=== PATIENT | male | born 1950 | race Caucasian/White ===

== ENCOUNTER 2022-08-18 13:09 | Outpatient (CLI) | payer MEDICARE, OTHER, SELFPAY ==
[2022-08-18 22:18] LABS: Basophils Absolute Auto 0.03 K/uL (0.00-0.30); Basophils Percent Auto 0.4 % (0.0-3.0); Eosinophils Absolute Auto 0.15 K/uL (0.00-0.50); Hematocrit 48.7 % (37.0-53.0); Hemoglobin* 15.6 gm/dL (13.5-17.5); Immature Granulocytes Abs Auto 0.02 K/uL (0.00-0.30); Immature Granulocytes Pct Auto 0.3 %; Lymphocytes Absolute Auto 1.97 K/uL (0.90-2.90); Mean Corpuscular HGB Conc 32 gm/dL (32-36); Mean Corpuscular Hemoglobin 28 pg (26-34); Mean Corpuscular Volume 88 fL (80-100); Monocytes Percent Auto 9.7 % (0.0-11.0); Neutrophils Absolute Auto 4.68 K/uL (1.7-7.0); Neutrophils Percent Auto 61.6 % (42.0-72.0); Platelet Count* 266 K/uL (140-440); Red Blood Count 5.54 m/uL (4.30-5.90); White Blood Count* 7.59 K/uL (4.50-11.00)
[2022-08-18 22:27] LABS: Chloride* 103 mmol/L (96-114); Potassium* 4.9 mmol/L (3.6-5.1); Sodium* 141 mmol/L (135-149)
[2022-08-18 22:30] LABS: Blood Urea Nitrogen* 13 mg/dL (7-30); Carbon Dioxide* 31 mmol/L (20-32); Cholesterol* 186 mg/dL (90-199); Creatinine* 0.8 mg/dL (0.5-1.5); Estimated Glomerular Filt Rate 93 ml/min
[2022-08-18 22:31] LABS: Calcium* 9.5 mg/dL (8.4-10.6); Glucose* 89 mg/dL (60-115); HDL Cholesterol* 63 mg/dL (>=40); LDL Cholesterol Calculated 107 mg/dL (<100); Triglycerides* 78 mg/dL (40-149)
[2022-08-18 23:03] LABS: Slide Review Reflex No
[2022-08-18 23:14] LABS: Vitamin B12* 612 pg/mL (243-894)
[2022-08-18 23:18] LABS: Ferritin* 13.9 ng/mL (17.9-464.0)
[2022-08-19 05:56] LABS: PSA Diagnostic* 6.06 ng/mL (0.10-4.00)
[2022-08-20 19:40] LABS: Folate, Serum 19.2 ng/mL (>=5.9)
== END 2022-08-18 13:10 | disposition home or self-care (01) ==
PROVIDERS: PCP Family Medicine; Visit Provider Family Medicine
DX: D64.9 Anemia, unspecified (principal); R97.20 Elevated prostate specific antigen [PSA]; Z13.6 Encounter for screening for cardiovascular disorders
CPT/HCPCS: 80048; 80061; 82607; 82728; 82746; 84153; 85025

== ENCOUNTER 2022-08-26 15:47 | Outpatient (CLI) | payer MEDICARE, OTHER, SELFPAY | END 2022-08-26 15:48 | disposition home or self-care (01) | LOC: NFLDREF 15:48 | PROVIDERS: PCP Family Medicine; Visit Provider Internal Medicine | DX: R31.9 Hematuria, unspecified (principal) | CPT/HCPCS: 87086 ==

== ENCOUNTER 2024-01-18 14:35 | Outpatient (CLI) | payer MEDICARE, OTHER, SELFPAY ==
--- OUTSIDE RECORDS SUMMARY | 2024-01-22 19:15 | XMS_ITS | Clinical Summary ---
Author Organization [employer] [facility] Address [place], [place] [address] Care Team Providers Care Depositing Machine Operator Name Role Phone David Constantino MD Primary Care Provider + Allergies No known active allergies Medications Medication Sig Dispensed Refills Start Date End Date Status ibuprofen (ADVIL; MOTRIN) 600 mg tabletIndications: Contusion of left shoulder, subsequent encounter,Contusio n of left hand including fingers, subsequent encounter Take 1 tablet by mouth every 6 hours if needed for Pain. Maximum of 3200 mg in 24 hours. 60 tablet 1 01/12/2017 Active oxyCODONE-acetamin ophen, 5-325 mg, (PERCOCET) 5-325 mg per tabletIndications: Acute pain of left shoulder Take 1 tablet by mouth every 4 hours if needed for Pain Max acetaminophen dose: 4000mg in 24 hrs. 8 tablet 10/08/2017 Active Active Problems Problem Noted Date Diagnosed Date COPD (chronic obstructive pulmonary disease) 11/2014 Elevated PSA 09/06/2014 Constipation 04/30/2009 Primary Spontaneous Pneumothorax 04/23/2009 Overview: Presented on 04/19, 80% pneumo on right side, chest tube placed, and removed after 24 hrs and discharged. Readmitted with shortness of breath, xray suggestive of 50% pneumo on the same side. 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 Likely related to smoking, but unclear. TIA (transient ischemic attack) 08/03/1988 Overview: Sensory only T7-T12 fx-closed/cord injury Overview: Traumatic, T12, needs to self catheterise since. Resolved Problems Problem Noted Date Diagnosed Date Resolved Date Thoracoscopic surgical proce glenne converted to open procedure 05/04/2009 09/06/2014 Tobacco use disorder 04/23/2009 015 Overview: History of tobacco use disorder, 40 pack year history, quit a year ago. Has no history of cough, shortness of breath, wheezing. Not on inhalers. Has not been admitted for shortness of breath, COPD exacerbation. CVA (cerebral vascular accident) 02/01/2004 09/06/2014 Overview: Sensory only, in 1988, left sided symptoms, recovered within a few days. CT head at the time normal. Was prescribed likely aggrenox, has not been taking it. No aspirin, statin. MRI not performed due to vertebral hardware. Immunizations Name Administration Dates Next Due Influenza, IIV4 05/03/2015 Pneumococcal Poly,23-Valent (Pneumovax) 04/24/20 09 Tdap 02/15/2008 Zoster (Zostavax-ZVL, live) 09/27/2015 Family History Medical History Relation Name Comments Unknown Father Unknown Mother Relation Name Status Comments Father Mother Social History Tobacco Use Types Packs/Day Years Used Date Smoking Tobacco: Former Cigarettes 1 40 1 - 05/03/2008 Smokeless Tobacco: Never Tobacco Cessation:Counseling Given: Yes Comments:Quit a year ago. Alcohol Use Standard Drinks/Week Comments No 0 (1 standard drink = 0.6 oz pur e alcohol) Sex and Gender Information Value Date Recorded Sex Assigned at Not on file Gender Identity Not on file Sexual Orientation Not on file Obstetrics History Last Filed Vital Signs Vital Sign Reading Time Taken Comments Blood Pressure 120/80 10/08/2017 11:28 AM CHAINER Pulse 86 10/08/2017 11:28 AM CHAINER Temperature 36.2 ??C (97.2 ??F) 05/04/2009 7:00 AM CD T Respiratory Rate 16 01/26/2017 1:05 PM CDT Oxygen Saturation 96% 10/08/2017 11:28 AM CHAINER Inhaled Oxygen Concentration - - Weight 79 kg (174 lb 1.6 oz) 10/08/2017 11:28 AM CHAINER Height 179 cm (5' 10.47) 10/08/2017 11:28 AM CS T Body Mass Index 24.65 10/08/2017 11:28 AM CHAINER Plan of Treatment Health Maintenance Due Date Last Done Comments Hepatitis C screening for ag e 18-79 1967 Pneumococcal series for age 65+ (2 of 2 - PCV) 2014 04/24/2009 Zoster (shingles) series for age 50+ (2 of 3) 11/22/2015 09/27/2015 Depression screening for age 12+ 01/26/2018 01/27/20 17, 10/11/2015 Tetanus booster 02/14/2018 02/15/2008 BMI (ht and wt on same day) for age 18+ 10/08/2018 10/08/2017, 02/25/2017, 01/26/2017, Additional history exists Lipids for age 45-75 08/31/2019 08/31/2014 Colonoscopy through age 75 12/08/2019 12/07/2014, COVID-19 vaccine series ( season) 2023 05/03/2022, 05/29/2021, 09/28/2020, Additional history exists Influenza for age 65+ 04/03/2024 05/03/2015 (Completed outside of [facility]), 05/03/2015 Tdap Completed 02/15/2008 Medical Devices Implanted Type Area Insurance And Benefits Clerk Device Identifier Shelf Expiration Date Model / Serial / Lot Strips Alia Us-45 - [id number] Implanted:Qty: 6 on 04/27/[address] [facility] Right: Lung [employer] 07/22/2009 [id number] # / / [id number] [id number] Alia Us-62 - [id number] Implanted:Qty: 2 on 04/27/[address] [facility] Right: Lung [employer] 07/22/2009 [id number] # / / [id number] Seamguluca Hearnaii 60g 4.8mm - [id number] Implanted:Qty: 4 on 04/27/[address] [facility] Right: Lung [employer] 03/03/2011 [id number]# / / [id number] Procedures Procedure Name Priority Date/Time Associated Diagnosis Comments COLONOSCOPY SCREENING Routine 12/07/2014 Special screening for malignant neoplasms, colon LIPID PANEL W REFLEX MEASURED LDL Routine 08/31/2014 9:39 AM CHAINER Routine general medical examination at a health care facility from Last 3 Months or Most Recently Relevant to Health Maintenance Results * COLONOSCOPY SCREENING (12/07/2014) David Constantino MD GI PROCEDURE ORD * LIPID PANEL W REFLEX MEASURED LDL (08/31/2014 9:39 AM CHAINER) CHOLESTEROL,TOTAL 189 100 - 199 mg/dL 08/31/2014 10:26 AM CHAINER [facility] TRIGLYCERIDES 60 <150 mg/dL 08/31/2014 10:26 AM CHAINER [facility] HDL CHOLESTEROL 63 >40 mg/dL 5 10:26 AM CHAINER [facility] NON-HDL CHOLESTEROL 126 <145 mg/dl 08/31/2014 10:26 AM CHAINER [facility] CHOL/HDL RATIO 3.00 <4.50 08/31/2014 10:26 AM [facility] LDL CHOLESTEROL 114 <=130 mg/dL 08/31/2014 10:26 AM [facility] PATIENT STATUS NOT GIVEN 08/31/2014 10:26 AM [facility] Blood specimen (specimen) BLOOD SPECIMEN / Unknown Venipuncture / Unknown 08/31/2014 9:39 AM CHAINER 08/31/2014 9:39 AM CHAINER David Constantino MD CHEMISTRY [address] [address], from Last 3 Months or Most Recently Relevant to Health Maintenance Advance Directives * Full Code (Latest Code Status on File) Date Activated Date Inactivated Comments 04/23/2009 5:46 PM 05/04/2009 3:57 PM Care Teams Depositing Machine Operator Relationship Specialty Start Date End Date David Constantino MD [address] [place] [address] PCP - General 07/06/06
== END 2024-01-18 14:36 | disposition home or self-care (01) ==
LOC: NFLDREF 01-22 19:14
PROVIDERS: PCP Family Medicine; Referring Provider Family Medicine; Visit Provider Registered Nurse
DX: R31.9 Hematuria, unspecified (principal)
CPT/HCPCS: 87086; 87186

== ENCOUNTER 2024-03-28 13:04 | Outpatient (CLI) | payer MEDICARE, OTHER, SELFPAY ==
--- OUTSIDE RECORDS SUMMARY | 2024-03-28 13:18 | XMS_ITS | Clinical Summary ---
Author Organization [employer] [facility] Address [place], [place] [address] Care Team Providers Care Automatic Vulcanizing Lead Operator Name Role Phone David Constantino MD [...] Comments Blood Pressure 120/80 10/08/2017 11:28 AM OTOLARYNGOLOGY REP Pulse 86 10/08/2017 11:28 AM OTOLARYNGOLOGY REP Temperature 36.2 ??C (97.2 ??F) 05/04/2009 7:00 AM CD T Respiratory Rate 16 01/26/2017 1:05 PM CDT Oxygen Saturation 96% 10/08/2017 11:28 AM OTOLARYNGOLOGY REP Inhaled Oxygen Concentration - - Weight 79 kg (174 lb 1.6 oz) 10/08/2017 11:28 AM OTOLARYNGOLOGY REP Height 179 cm (5' 10.47) 10/08/2017 11:28 AM CS T Body Mass Index 24.65 10/08/2017 11:28 AM OTOLARYNGOLOGY REP Plan of Treatment Health Maintenance Due Date [...] age 65+ 04/03/2024 05/03/2015 (Completed outside of [facility]), 05/03/2015 Tdap Completed 02/15/2008 Medical Devices Implanted Type Area Roller Inspector Device Identifier Shelf Expiration Date Model / Serial / Lot Strips Alia Us-45 - [id number] Implanted:Qty: 6 on 04/27/[address] [facility] Right: Lung [employer] 07/22/2009 [id number] # / / [id number] Strips Alia Us-62 - [id number] Implanted:Qty: 2 on 04/27/[address] [facility] Right: Lung [employer] 07/22/2009 [id number] # / / [id number] Seamguluca Hearnaii 60g 4.8mm - [id number] Implanted:Qty: 4 on 04/27/[address] [facility] Right: Lung [employer] 03/03/2011 [id number]# / / [id number] Procedures Procedure Name Priority Date/Time Associated Diagnosis Comments COLONOSCOPY SCREENING Routine 12/07/2014 Special screening for malignant neoplasms, colon LIPID PANEL W REFLEX MEASURED LDL Routine 08/31/2014 9:39 AM OTOLARYNGOLOGY REP Routine general medical examination at a health care facility from Last 3 Months or Most Recently Relevant to Health Maintenance Results * COLONOSCOPY SCREENING (12/07/2014) David Constantino MD GI PROCEDURE ORD * LIPID PANEL W REFLEX MEASURED LDL (08/31/2014 9:39 AM OTOLARYNGOLOGY REP) CHOLESTEROL,TOTAL 189 100 - 199 mg/dL 08/31/2014 10:26 AM OTOLARYNGOLOGY REP [facility] TRIGLYCERIDES 60 <150 mg/dL 08/31/2014 10:26 AM OTOLARYNGOLOGY REP [facility] HDL CHOLESTEROL 63 >40 mg/dL 5 10:26 AM OTOLARYNGOLOGY REP [facility] NON-HDL CHOLESTEROL 126 <145 mg/dl 08/31/2014 10:26 AM OTOLARYNGOLOGY REP [facility] CHOL/HDL RATIO 3.00 <4.50 08/31/2014 10:26 AM [facility] LDL CHOLESTEROL 114 <=130 mg/dL 08/31/2014 10:26 AM [facility] PATIENT STATUS NOT GIVEN 08/31/2014 10:26 AM [facility] Blood specimen (specimen) BLOOD SPECIMEN / Unknown Venipuncture / Unknown 08/31/2014 9:39 AM OTOLARYNGOLOGY REP 08/31/2014 9:39 AM OTOLARYNGOLOGY REP David Constantino MD CHEMISTRY [address] [address], from Last 3 Months or Most Recently Relevant to Health Maintenance Advance Directives * Full Code (Latest Code Status on File) Date Activated Date Inactivated Comments 04/23/2009 5:46 PM 05/04/2009 3:57 PM Care Teams Automatic Vulcanizing Lead Operator Relationship Specialty Start Date End Date David Constantino MD [address] [place] [address] PCP - General 07/06/06
== END 2024-03-28 13:05 | disposition home or self-care (01) ==
PROVIDERS: PCP Family Medicine; Visit Provider Family Medicine
DX: D64.9 Anemia, unspecified (principal); R97.20 Elevated prostate specific antigen [PSA]; Z13.9 Encounter for screening, unspecified
CPT/HCPCS: 80048; 80061; 82728; 84153; 85025; G0103

== ENCOUNTER 2024-08-18 19:59 | Emergency (ER) | payer MEDICARE, OTHER, SELFPAY ==
[2024-08-18 20:34] VITALS: BP 162/91; PULSE 83; RESP 16; TEMP 36.6; O2SAT 97; BMI 23.7
--- NOTE | 2024-08-18 20:38 | CRLHL7_ITS ---
For Patients: As a result of the Cures Act, medical imaging exams and procedure reports are released immediately into your electronic medical record. You may view this report before your referring provider. If you have questions, please contact your health care provider. INDICATION: Injury and pain. TECHNIQUE: Right wrist 3 views. COMPARISON: 03/28/2024. FINDINGS: No acute fracture or dislocation. Old triquetral fracture. Wrist and partially visualized 1st MCP joint degenerative changes, similar to prior. Mild soft tissue swelling. IMPRESSION: No acute osseous abnormality. Dictated by Asif Lopez MD @ 08/18/2024 9:10:34 PM (Electronically Signed)
--- NOTE | 2024-08-18 21:32 | ED_ITS ---
HPI - General Adult General Date Seen: 08/18/24 Chief complaint: Extremity Pain/Injury, Upper Stated complaint: R wrist deformed-fall out of truck Time Seen by Provider: 08/18/24 21:28 History of Present Illness HPI narrative: 74-year-old gentleman presenting to the ER today with right wrist (and mild left shoulder) pain. He slipped and fell out of his truck about 2 hours prior to arrival. He is having wrist pain and swelling. He struck his hand on the back of his wrist when he fell. He now has pain with evolving swelling and ecchymosis on the dorsum of the wrist. He has pain on the dorsum is hand but mostly in the wrist, mostly in the center, over the capitate area. He is having limited flexion extension the wrist to the pain and limited ability to make a fist in his hand because it hurts his wrist. No associated numbness or weakness. No discoloration in his fingers. He does Although he did hit his shoulder, it is not painful and he would not have come to the ER for that injury. He did not hit his head. No neck pain. No numbness or tingling in his arms or legs. No other injury from falling. Related Data Home Medications ?Medication ?Instructions ?Recorded ?Confirmed catheter 14 Fr (Bull Catheter) 06/30/22 03/28/24 ferrous sulfate 325 mg (65 mg 325 mg PO QDAY 08/18/22 08/18/24 iron) tablet omeprazole magnesium 20 mg 20 mg PO QDAY 01/18/24 08/18/24 tablet,delayed release (Prilosec OTC) Previous Rx's ?Medication ?Instructions ?Recorded fluticasone 250 mcg-salmeterol 50 1 inh inhalation BID #180 ea 04/13/24 mcg/dose blistr powdr for inhalation (Advair Diskus) Allergies Allergy/AdvReac Type Severity Reaction Status Date / Time No Known Drug Allergies Allergy Verified 03/28/24 12:40 [facility] Medical History (Updated 08/18/24 @ 21:48 by Joce Stock MD) History of TIA (transient ischemic attack) (~2002) ?Z86.73 - Personal history of transient ischemic attack (TIA), and cerebral infarction without residual deficits (ICD-10) Osteoarthritis, multiple sites ?M15.9 - Polyosteoarthritis, unspecified (ICD-10) Hearing loss ?H91.90 - Unspecified hearing loss, unspecified ear (ICD-10) T12 burst fracture (1988) ?S22.081A - Stable burst fracture of T11-T12 vertebra, initial encounter for closed fracture (ICD-10) Chronic constipation ?K59.09 - Other constipation (ICD-10) Neurogenic bladder ?N31.9 - Neuromuscular dysfunction of bladder, unspecified (ICD-10) History of poliomyelitis ?Z86.12 - Personal history of poliomyelitis (ICD-10) COPD (chronic obstructive pulmonary disease) ?J44.9 - Chronic obstructive pulmonary disease, unspecified (ICD-10) RASCON (dyspnea on exertion) ?R06.09 - Other forms of dyspnea (ICD-10) Anemia ?D64.9 - Anemia, unspecified (ICD-10) Elevated PSA ?R97.20 - Elevated prostate specific antigen [PSA] (ICD-10) Surgical History (Updated 03/24/24 @ 10:08 by Karen Davenport) History of thoracotomy (2008) ?Z98.890 - Other specified postprocedural states (ICD-10) History of vasectomy (1990) ?Z98.52 - Vasectomy status (ICD-10) History of spinal surgery ?Z98.890 - Other specified postprocedural states (ICD-10) History of right inguinal hernia repair (2004) ?Z98.890 - Other specified postprocedural states (ICD-10) ?Z87.19 - Personal history of other diseases of the digestive system (ICD-10) History of repair of left rotator cuff (03/03/17) ?Z98.890 - Other specified postprocedural states (ICD-10) History of total left hip arthroplasty (02/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) ?Z96.642 - Presence of left artificial hip joint (ICD-10) S/P small bowel resection (07/02/20) ?Z90.49 - Acquired absence of other specified parts of digestive tract (ICD- 10) Social History (Updated 03/28/24 @ 14:29 by Shasta Chaudhari) What is your current living situation?: I presently have a place to live Problems where you live: pests, such as bugs, ants, or mice In the past 12 months, utilities in danger of being shut off: no In past 12 months, lack of transportation kept you from medical appts, meetings, work, or getting things needed for daily living: no In the past 12 mos, have been you worried that your food would run out before you had money to buy more?: never true In the past 12 mos, the food you bought just didn't last and you didn't have money to buy more?: never true Smoking Status: Former smoker How often does anyone, including family, friends and others, physically hurt you : never How often does anyone, including family, friends and others, insult or talk down to you: never How often does anyone, including family, friends and others, threaten you with harm: never How often does anyone, including family, friends and others, scream or curse at you: never Health Related Social Needs: Inadequate housing (Z59.1) Exam Narrative: Exam Narrative: Constitutional: Appears well-developed and well-nourished. Alert. Conversant. Non toxic. Very polite. HENT: Head: Atraumatic. Nose: Nose normal. Mouth/Throat: Oral mucosa is clear and moist. no trismus. Eyes: Conjunctivae normal. EOM normal. Pupils equal, round, and reactive to light. No scleral icterus. Neck: Normal range of motion. Neck supple. No tracheal deviation present. Cardiovascular: Normal rate, regular rhythm. No gallop. No friction rub. No murmur heard. Symmetric radial artery pulses Pulmonary/Chest: Effort normal. No stridor. No respiratory distress. No wheezes. No rales. No rhonchi . No tenderness. Musculoskeletal: RUE: Clavicle, shoulder, humerus, biceps, triceps nontender. Elbow nontender. Normal flexion extension of the elbow. Forearm nontender. He does have some discomfort in pronation and supination by pain but he is able to fully supinate/pronate. There is the swelling over the dorsal central wrist with small amount of allowing ecchymosis and tenderness there. No bony crepitus. Although chief complaint indicates that he had deformity brisk, he does not have deformity, he has swelling on the dorsal wrist. He is not tender over the anatomic snuffbox. No tenderness over the ulnar styloid. Range of motion list limited by pain. He is not having tenderness over the metacarpal bones in his digits 1, 2, 3, 4, 5. MCP joints are nontender. Fingers and thumb nontender. Intact radial, median, ulnar nerve sensory function. Normal distal cap refill. Normal radial pulse LUE: Normal range of motion. No tenderness. No deformity RLE: Normal range of motion. No edema. No tenderness. No deformity LLE: Normal range of motion. No edema. No tenderness. No deformity Lymph: No cervical adenopathy. Neurological: Alert and oriented to person, place, and time. Normal strength. CN II-VII intact. No sensory deficit. GCS eye subscore is 4. GCS verbal subscore is 5. GCS motor subscore is 6. Normal coordination Skin: Skin is warm and dry. No rash noted. No pallor. Normal capillary refill. Psychiatric: Normal mood. Normal affect. Const: Vital Signs, click to edit/add: Vital Signs - 24 hr 08/18/24 20:34 Temperature 98 F Pulse Rate [Pulse Oximeter] 83 Respiratory Rate 16 Blood Pressure [Ri ght Upper Arm] 162/91 H Pulse Oximetry 97 Oxygen Delivery Me thod Room Air Course Vital Signs Vital signs: Initial Vital Signs Temperature 98 F 08/18/24 20:34 Temperature Source Temporal Artery Scan 08/18/24 20:34 Pulse Rate 83 08/18/24 20:34 Respiratory Rate 16 08/18/24 20:34 Blood Pressure 162/91 H 08/18/24 20:34 Blood Pressure Mean 114 H 08/18/24 20:34 Blood Pressure Position Sitting 08/18/24 20:34 Pulse Oximetry 97 08/18/24 20:34 Oxygen Delivery Method Room Air 08/18/24 20:34 Vital Signs Temperature 98 F 08/18/24 20:34 Pulse Rate 83 08/18/24 20:34 Respiratory Rate 16 08/18/24 20:34 Blood Pressure 162/91 H 08/18/24 20:34 Pulse Oximetry 97 08/18/24 20:34 Oxygen Delivery Method Room Air 08/18/24 20:34 Temperature 98 F 08/18/24 20:34 Pulse Rate 83 08/18/24 20:34 Respiratory Rate 16 08/18/24 20:34 Blood Pressure 162/91 H 08/18/24 20:34 Pulse Oximetry 97 08/18/24 20:34 Oxygen Delivery Method Room Air 08/18/24 20:34 Medications Administered Medications: Discontinued Medications Generic Name Dose Route Start Last Admin Trade Name Evelyn PRN Reason Stop Dose Admin Oxycodone HCl 5 mg 08/18/24 22:17 08/18/24 22:21 Oxycodone 5 Mg Tablet PO 08/18/24 22:18 5 mg ONCE ONE Administration Medical Decision Making MDM Narrative Medical decision making narrative: Pleasant 74-year-old gentleman presenting to the ER today after he slipped and fell out of his truck tonight. He does have a 3/4 Dave truck so was slightly elevated. On a he is primarily concerned about right wrist pain. He did incidentally hit his left shoulder but does not have much pain there and does not want evaluation. He did not hit his head or have other injuries from the fall. Exam of the right wrist does reveal subtle swelling and evolving ecchymosis on the dorsal central wrist. X-rays are fortunately negative for any fracture. However discussed with the patient that the possibility for an occult fracture remains. Will place the patient into a prefabricated wrist splint for immobilization. Discussed rest, ice, immobilization, elevation. Patient will need close outpatient follow-up with the orthopedic clinic for re-evaluation repeat x-rays at less he is having substantial improvement within the next 3-4 days. For pain control he will try ibuprofen and Tylenol 1st. Instymeds prescription for oxycodone provided. Opiate precautions reviewed. He has had oxycodone in the past and does not have significant nausea or constipation from it. Precautions for return to the ER reviewed. At this point there is no evidence for compartment syndrome, neurovascular compromise, or other life/limb threatening injury. Imaging Data XR right wrist: Attestation: I have reviewed the pertinent imaging results. Radiologist's impression: FINDINGS: No acute fracture or dislocation. Old triquetral fracture. Wrist and partially visualized 1st MCP joint degenerative changes, similar to prior. Mild soft tissue swelling. IMPRESSION: No acute osseous abnormality. Discharge Plan Discharge Clinical Impression: Right wrist sprain Patient Disposition: Home, Self-Care Condition: Stable Instructions: Wrist Injury (ED), Wrist Sprain (ED) Additional Instructions: As we discussed, if your wrist is not feeling markedly improved by Thursday, please recheck with your regular doctor or with the [facility]. To schedule an appointment with the Ortho Clinic, call [phone]. To help your wrist injury heal, keep it immobilized in the splint. Use ice for 20 minutes every 3-4 hours for the next 2-3 days. Treat pain with Tylenol or ibuprofen. If you have pain uncontrolled by those medications take oxycodone. Use caution with oxycodone because it can cause dizziness, drowsiness, constipation, and can be addictive. Come back to the ER right away if you have any concerns especially pallor or color change in your hand, numbness in your hand, severe uncontrolled pain, or any other problems. Activity Level: No Restrictions Discharge Diet: Regular Prescriptions: No Action omeprazole magnesium [Prilosec OTC] 20 mg tablet,delayed release (DR/EC) 20 mg PO QDAY ferrous sulfate 325 mg (65 mg iron) tablet 325 mg PO QDAY (DME) Bull Catheter 14 Fr misc See Rx Instructions .Route Rx Instructions: self caths QID fluticasone propion-salmeterol [Advair Diskus] 250-50 mcg/dose blister with device 1 inh inhalation BID Qty: 180 3RF Follow Up/Referrals: David Constantino MD [Primary Care Provider] - Stand Alone [facility] Inst[facility]
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
[2024-08-18] MEDS: OXYCODONE 5 MG TABLET PO (22:21)
== END 2024-08-18 22:15 | disposition home or self-care (01) ==
LOC: ED 22:13
PROVIDERS: Emergency Provider Emergency Medicine; PCP Family Medicine
DX: M25.531 Pain in right wrist (principal)
CPT/HCPCS: 73110; 99282; 99283; 99284; A9270

== ENCOUNTER 2025-04-07 09:39 | Outpatient (CLI) | payer MEDICARE, OTHER, SELFPAY | END 2025-04-07 09:40 | disposition home or self-care (01) | PROVIDERS: PCP Family Medicine; Visit Provider Family Medicine | DX: R97.20 Elevated prostate specific antigen [PSA] (principal); Z13.9 Encounter for screening, unspecified; Z13.6 Encounter for screening for cardiovascular disorders | CPT/HCPCS: 80048; 80061; 84153 ==